=== PATIENT | male | born 1995 | race Caucasian/White ===

== ENCOUNTER 2019-12-30 23:42 | Emergency (ER) | payer SELFPAY ==
[~2019-12-30] VITALS: Ht 170.2 cm; Wt 93.2 kg
[2019-12-31] MEDS ORDERED: LIDOCAINE 1%/EPI 1:100,000 30 ML VIAL INJ ONE (01:00)
[2019-12-31] MEDS ORDERED: BACITRACIN 0.9 GM PACKET OINTMENT TP ONE (01:00)
[2019-12-31] MEDS ORDERED: LIDOCAINE 1%/EPI 1:200,000/PF 10 ML VIAL INJ ONE (01:30)
[2019-12-31 02:30] VITALS: BP 139/87
== END 2019-12-31 02:52 | disposition home or self-care (01) ==
LOC: EMS 23:43
DX: S01.111A Laceration without foreign body of right eyelid and periocular area, initial encounter (principal); W05.1XXA Fall from non-moving nonmotorized scooter, initial encounter; Y93.55 Activity, bike riding; Y92.89 Other specified places as the place of occurrence of the external cause; Y99.8 Other external cause status
CPT/HCPCS: 12013; 99282; J3490